=== PATIENT | female | born 2000 | race Caucasian/White ===

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

== ENCOUNTER 2025-06-22 06:53 | Inpatient (IN) ==
[2025-06-22] MEDS ORDERED: LIDOCAINE 1% LOCAL 20 ML VIAL INFIL PRN (07:31)
[2025-06-22] MEDS ORDERED: OXYTOCIN 30 UNITS/NSS 30 UNITS/500 ML BAG IV PRN ×3 (07:31→17:40)
--- NOTE | 2025-06-22 07:45 | History & Physical Report ---
Date of Service June 22, 2025 Assessment & Plan (1) : Plan: Admit to L&D, EFM/toco for labor. Labs. Plans for epidural at some point. History of Present Illness Chief Complaint: contractions, rupture of membranes Primary Care Provider: Justina Brown 25yo @ 38 07/10, came to L&D after clear fluid leakage at home at 5am. [place] a gush, continued to leak. Feeling contractions. + movement and Delivery Plans Rubella equivocal *Recommend PPX MMR Hepatitis B Non Immune *Recommend Hepatitis B Vaccine Allergies Allergy/AdvReac Type Severity Reaction Status Date / Time No Known Allergies Allergy Verified 06/20/25 15:05 Home Medications Medication Instructions Recorded Confirmed Type vitamins no.144-folic 2 tab PO DAILY 11/28/24 06/20/25 History acid 400 mcg chewable tablet () ferrous sulfate 27 mg iron tablet 27 mg PO DAILY 04/22/25 06/20/25 History sertraline 25 mg tablet (Zoloft) 25 mg PO DAILY #30 tabs 05/13/25 06/20/25 Rx Patient History Medical History (Updated 06/22/25 @ 07:47 by Fe Burr DO) Varicella vaccination Anemia COVID-19 Medical marijuana use states has not used in over a year Bipolar depression Missed Dental trauma Psychological disorder Miscarriage Medically induced miscarriage History of COVID-19 1 MON AGO, [facility] [place] - SORE THROAT , SORE BODY NO CURRENT SYMPTOMS Ovarian cyst Panic disorder Bipolar disorder Depression Anxiety History of anemia Surgical History S/P laparoscopic cholecystectomy (~2018) Domingo Lisa H/O dilation and curettage (~2016) x2 H/O wisdom tooth extraction Family History Denies family history of Ovarian cancer Breast cancer Colorectal cancer Social History (Updated 04/04/25 @ 23:39 by Mercedes Nguyen RN) Smoking Status: Former smoker Tobacco Type: E-cigarettes / Vaping Do You Dip or Chew Tobacco: No; Hx Alcohol Use: No Hx Substance Use: No Preferred Language: [place] Communication Ability: Effective Cosmetology Instructor Required: No Beliefs That Will Affect Care: None marital status: Single marital status details: judit Cagle (24) [phone] Current Living Situation: Significant Other Current Living Situation Comment: lives with judit, 2 dogs, ducks current occupational status: employed 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 How many Children do You have: 0 Feels Safe at Home: Yes Diet: regular during the past year weight has: decreased > 10 lbs Assistive Devices: Glasses Review of Systems All systems reviewed & are unremarkable except as noted in HPI & below Physical Exam Physical Exam: FHT Cat 1 [place] not able to trace ctx SVE 4/100/-1 Grossly ruptured Constitutional: WD/WN, vitals as above Respiratory: normal respiratory effort, lungs clear to auscultation no respiratory distress Cardiovascular: Rate/Rhythm: regular rate and regular rhythm Gastrointestinal (Abdomen): Inspection/Auscultation: abdomen normal to inspection Percussion/Palpation: abdomen soft; abdomen nontender Gravid. No s/s chorio or abruption. Skin: no rashes, warm and dry Psychiatric: A+Ox3, euthymic affect Results & Data Vital Signs (Past 12 Hours) Vital Signs Pulse BP 06/22/25 07:09 122 H 137/79 Coding Level of Care Code None Diagnoses Z34.90
[2025-06-22 07:56] LABS: Hematocrit (blood only) 34.6 % (37.0-47.0); Hemoglobin 11.3 g/dL (12.0-16.0); Mean Corpuscular Hemoglobin 26.7 pg (25.0-34.0); Mean Corpuscular Volume 81.6 fL (80.0-100.0); Platelet Count 507 K/uL (130-400); RDW Standard Deviation 43.8 fL (36.4-46.3); Red Blood Count 4.24 M/uL (4.20-5.40); White Blood Count 16.91 K/ul (4.8-10.8)
[2025-06-22] MEDS: LACTATED RINGER'S 1,000 ML IV PRN (08:12)
--- NOTE | 2025-06-22 08:38 | Anesthesiology Consultation ---
Date of Service June 22, 2025 Assessment & Plan (1) Encounter for pre-operative examination: Chart Review Chart Review: Acceptable Risk for Labor Epidural History Height/Weight Height: 5 ft 5 in Weight: 122.47 kg Allergies Allergy/AdvReac Type Severity Reaction Status Date / Time No Known Allergies Allergy Verified 06/22/25 07:58 Medications Home Medications Medication Instructions Recorded Confirmed Last Taken vitamins no.144-folic 2 tab PO DAILY 11/28/24 06/22/25 06/21/25 09:00 acid 400 mcg chewable tablet () ferrous sulfate 27 mg iron tablet 27 mg PO DAILY 04/22/25 06/22/25 06/21/25 09:00 sertraline 25 mg tablet (Zoloft) 25 mg PO DAILY #30 tabs 05/13/25 06/22/25 06/20/25 21:00 Active Medications Generic Name Dose Route Start Last Admin Trade Name Freq PRN Reason Stop Dose Admin Lactated Ringer's 1,000 mls @ 125 mls/hr 06/22/25 07:31 06/22/25 08:12 Lr IV 06/24/25 07:30 999 mls/hr .Q8H PRN Administration L&D Protocol Protocol Past Medical History Medical History Varicella vaccination Anemia COVID-19 Medical marijuana use states has not used in over a year Bipolar depression Missed Dental trauma Psychological disorder Miscarriage Medically induced miscarriage History of COVID-19 1 MON AGO, [facility] [place] - SORE THROAT , SORE BODY NO CURRENT SYMPTOMS Ovarian cyst Panic disorder Bipolar disorder Depression Anxiety History of anemia Past Family History Family History Denies family history of Ovarian cancer Breast cancer Colorectal cancer Past Surgical History Surgical History S/P laparoscopic cholecystectomy (~2018) [place] Lisa H/O dilation and curettage (~2016) x2 H/O wisdom tooth extraction Social History Smoking Status: Never smoker Do You Dip or Chew Tobacco: No Hx Alcohol Use: No Hx Substance Use: No substance use type: other Substance Use Type Other:: Medical marijuana card Physical Exam Vital Signs Last Vital Signs Temp 36.5 C 06/22/25 07:10 Pulse 120 H 06/22/25 08:33 Resp 20 06/22/25 07:10 BP 137/79 06/22/25 07:10 Pulse Ox 98 06/22/25 08:33 Testing Laboratory Results 06/22/25 07:43
[2025-06-22] MEDS ORDERED: NALOXONE HCL 1 MG in SODIUM CHLORIDE 0.9% 1,000 ML IV PRN (09:08)
[2025-06-22] MEDS ORDERED: ONDANSETRON INJ 2 MG/ML 2 ML VIAL IV PRN (09:08)
[2025-06-22] MEDS ORDERED: BUPIVACAINE 0.25% PF 30 ML VIAL EPI PRN (09:08)
[2025-06-22] MEDS ORDERED: NALOXONE HCL 0.4 MG/1 ML VIAL/CARP IV PRN (09:08)
[2025-06-22] MEDS ORDERED: LIDOCAINE 2% MPF LOCAL 5 ML VIAL EPI PRN (09:08)
[2025-06-22] MEDS ORDERED: ROPIVACAINE 0.5% PF 5 MG/ML 20 ML VIAL EPI PRN (09:08)
[2025-06-22] MEDS ORDERED: SODIUM CHLORIDE 0.9% PF INJ 10 ML VIAL EPI PRN (09:08)
[2025-06-22] MEDS: LIDOCAINE 2%/EPINEPHRINE 1:200,000 20 ML PF ONE (09:09)
[2025-06-22] MEDS: BUPIVACAINE 0.25% PF 30 ML VIAL ONE (09:10)
[2025-06-22] MEDS: fentANYL 2 MCG/ML BUPIVacaine 0.125%-NSS 100ML BAG ONE (09:12)
[2025-06-22] MEDS: SODIUM CHLORIDE 0.9% PF INJ 10 ML VIAL EPI STA (09:47)
[2025-06-22] MEDS: LIDOCAINE 2%/EPINEPHRINE 1:200,000 20 ML PF EPI STA (09:47)
[2025-06-22] MEDS: BUPIVACAINE 0.25% PF 30 ML VIAL EPI STA (09:47)
--- NOTE | 2025-06-22 09:55 | Labor Progress Brief Note ---
Date of Service June 22, 2025 Subjective pt comfortable with epidural Assessment & Plan (1) Normal labor: Plan contraction pattern irregular and will add pit. fhts categ 1. aware i am assuming care. Admission and Anticipated Discharge Date Admission Date: June 22, 2025 Physical Exam Constitutional: WD/WN, vitals as above Genitourinary: Manual OB Exam: + cervical dilation 4 cm, + cervical effacement 100%, + station -2 and + amniotic fluid (forebag, arom) clear OB Exam Monitor Tracing: + external FHT monitor used, + external uterine monitor used (q3-4), + category I and + normal FHT variability Results & Data Vital Signs (Past 12 Hours) Vital Signs Temp Pulse Resp BP Pulse Ox 06/22/25 09:48 102 H 98 06/22/25 09:43 101 H 98 06/22/25 09:42 106 H 133/76 06/22/25 09:38 101 H 97 06/22/25 09:33 107 H 97 06/22/25 09:32 110 H 138/82 06/22/25 09:30 101 H 136/77 06/22/25 09:28 98 06/22/25 09:28 108 H 06/22/25 09:28 120 H 133/82 06/22/25 09:26 103 H 128/76 06/22/25 09:24 110 H 118/76 06/22/25 09:23 108 H 98 06/22/25 09:22 109 H 140/80 06/22/25 09:20 104 H 136/69 06/22/25 09:18 106 H 132/66 98 06/22/25 09:16 101 H 137/65 06/22/25 09:15 18 06/22/25 09:15 18 06/22/25 09:14 106 H 139/63 06/22/25 09:13 110 H 97 06/22/25 09:12 115 H 137/63 06/22/25 09:10 113 H 139/70 06/22/25 09:08 113 H 139/69 97 06/22/25 09:06 101 H 158/69 H 06/22/25 09:03 97 06/22/25 09:03 99 H 06/22/25 09:03 107 H 140/74 06/22/25 08:58 118 H 97 06/22/25 08:53 116 H 98 06/22/25 08:48 110 H 98 06/22/25 08:43 113 H 98 06/22/25 08:40 116 H 143/89 H 06/22/25 08:38 107 H 97 06/22/25 08:33 120 H 98 06/22/25 08:28 117 H 98 06/22/25 07:15 20 06/22/25 07:15 97.7 F 20 06/22/25 07:10 97.7 F 122 H 20 137/79 06/22/25 07:09 122 H 137/79 Coding Level of Care Code None Diagnoses Normal labor O80; Z37.9
[2025-06-22] MEDS: OXYTOCIN 30 UNITS/NSS 30 UNITS/500 ML BAG IV PRN (10:09)
[2025-06-22] MEDS: SODIUM CHLORIDE 0.9% PF INJ 10 ML VIAL ONE (10:11)
[2025-06-22] MEDS ORDERED: ROPIVACAINE 0.5% 5 MG/ML 30 ML VIAL ONE (12:32)
[2025-06-22] MEDS ORDERED: LIDOCAINE 2%/EPINEPHRINE 1:200,000 20 ML PF ONE (12:32)
--- NOTE | 2025-06-22 12:39 | Anesthesia Procedure Note ---
Date of Service June 22, 2025 Anesthesia Epidural Re-Dose Vital Signs Temp Pulse Resp BP Pulse Ox 36.8 C 113 H 22 137/83 97 06/22/25 11:30 06/22/25 12:33 06/22/25 12:30 06/22/25 12:31 06/22/25 12:33 Notes Pain Intensity: 8 Dilatation (cm): 9.0 Effacement (%): 100 Called by nursing to evaluate epidural as the patient is having increased pain. The epidural was re-dosed with the following medications (all medications via epidural route) after negative aspiration of the epidural catheter for CSF/HEME 1.2% lidocaine and 0.2% ropivacaine 7ml After Epidural Re-Dose Mental Status: alert / awake / arousable Pain: improving with treatment Airway Patency, RR, SpO2: stable & adequate BP & HR: stable & adequate
--- NOTE | 2025-06-22 13:11 | Labor Progress Brief Note ---
Date of Service June 22, 2025 Subjective more pain with ctx Assessment & Plan (1) Normal labor: Plan: good progress in labor. expect 2nd stage soon. fhts categ 1. will plan to see if anesth can help with pain mgmt. Admission and Anticipated Discharge Date Admission Date: June 22, 2025 Physical Exam Constitutional: WD/WN, vitals as above Genitourinary: Manual OB Exam: + cervical dilation 9 cm, + cervical effacement 100% and + station 0 OB Exam Monitor Tracing: + external FHT monitor used, + external uterine monitor used (q2, pit at 3), + category I and + normal FHT va riability Results & Data Vital Signs (Past 12 Hours) Vital Signs Temp Pulse Resp BP Pulse Ox 06/22/25 13:08 106 H 98 06/22/25 13:03 111 H 98 06/22/25 13:01 121 H 145/66 H 06/22/25 12:58 113 H 98 06/22/25 12:53 130 H 97 06/22/25 12:48 116 H 97 06/22/25 12:43 118 H 96 06/22/25 12:40 107 H 140/84 06/22/25 12:38 107 H 97 06/22/25 12:33 113 H 97 06/22/25 12:31 114 H 137/83 06/22/25 12:30 22 06/22/25 12:30 22 06/22/25 12:28 98 06/22/25 12:28 101 H 06/22/25 12:28 97 H 94 06/22/25 12:23 109 H 98 06/22/25 12:18 107 H 97 06/22/25 12:17 104 H 135/78 06/22/25 12:13 111 H 98 06/22/25 12:08 108 H 97 06/22/25 12:03 104 H 98 06/22/25 12:02 103 H 142/87 H 06/22/25 12:00 20 06/22/25 12:00 20 06/22/25 11:58 104 H 97 06/22/25 11:53 105 H 97 06/22/25 11:48 108 H 97 06/22/25 11:45 102 H 134/75 06/22/25 11:43 102 H 97 06/22/25 11:38 102 H 98 06/22/25 11:33 113 H 98 06/22/25 11:31 104 H 139/98 06/22/25 11:30 22 06/22/25 11:30 98.2 F 22 06/22/25 11:28 109 H 97 06/22/25 11:23 108 H 97 06/22/25 11:18 112 H 97 06/22/25 11:16 105 H 137/94 06/22/25 11:13 104 H 97 06/22/25 11:08 105 H 96 06/22/25 11:03 94 H 98 06/22/25 11:00 100 H 18 136/58 L 06/22/25 10:58 98 H 98 06/22/25 10:53 97 H 97 06/22/25 10:48 104 H 98 06/22/25 10:43 98 H 98 06/22/25 10:41 93 H 105/58 L 06/22/25 10:38 103 H 98 06/22/25 10:35 96 H 140/65 06/22/25 10:33 94 H 98 06/22/25 10:32 95 H 139/73 06/22/25 10:30 16 06/22/25 10:30 16 06/22/25 10:28 97 H 98 06/22/25 10:23 99 H 97 06/22/25 10:21 105 H 160/72 H 06/22/25 10:18 110 H 98 06/22/25 10:13 103 H 98 06/22/25 10:08 112 H 98 06/22/25 10:03 101 H 98 06/22/25 10:00 18 06/22/25 09:58 100 H 97 06/22/25 09:53 112 H 98 06/22/25 09:48 102 H 98 06/22/25 09:43 101 H 98 06/22/25 09:42 106 H 133/76 06/22/25 09:38 101 H 97 06/22/25 09:33 107 H 97 06/22/25 09:32 110 H 138/82 06/22/25 09:30 98.2 F 101 H 18 136/77 06/22/25 09:28 98 20 09:28 108 H 20 09:28 120 H 133/82 06/22/25 09:26 103 H 128/76 06/22/25 09:24 110 H 118/76 06/22/25 09:23 108 H 98 06/22/25 09:22 109 H 140/80 06/22/25 09:20 104 H 136/69 06/22/25 09:18 106 H 132/66 98 06/22/25 09:16 101 H 137/65 06/22/25 09:15 18 06/22/25 09:15 18 06/22/25 09:14 106 H 139/63 06/22/25 09:13 110 H 97 06/22/25 09:12 115 H 137/63 06/22/25 09:10 113 H 139/70 06/22/25 09:08 113 H 139/69 97 06/22/25 09:06 101 H 158/69 H 06/22/25 09:03 97 06/22/25 09:03 99 H 06/22/25 09:03 107 H 140/74 06/22/25 08:58 118 H 97 06/22/25 08:53 116 H 98 06/22/25 08:48 110 H 98 06/22/25 08:43 113 H 98 06/22/25 08:40 116 H 143/89 H 06/22/25 08:38 107 H 97 06/22/25 08:33 120 H 98 06/22/25 08:28 117 H 98 06/22/25 07:15 20 06/22/25 07:15 97.7 F 20 06/22/25 07:10 97.7 F 122 H 20 137/79 06/22/25 07:09 122 H 137/79 Coding Level of Care Code None Diagnoses Normal labor O80; Z37.9
--- NOTE | 2025-06-22 14:03 | Labor Progress Brief Note ---
Date of Service June 22, 2025 Subjective not feeling urge to push, can barely feel her legs. Assessment & Plan (1) Normal labor: Plan rec drain bladder, position change and see if baby can rotate as i suspect OP right now. re-attempt pushing in about 30-60min. fhts categ 1. pt agreeable. Admission and Anticipated Discharge Date Admission Date: June 22, 2025 Physical Exam Constitutional: WD/WN, vitals as above Genitourinary: Manual OB Exam: + cervical dilation 10 cm, + cervical effacement 100% and + station + 1 OB Exam Monitor Tracing: + external FHT monitor used, + external uterine monitor used (q2-3 pit at 3), + category I and + normal FHT variability practice push x 1, some good effort , baby feels OP. voided. Results & Data Vital Signs (Past 12 Hours) Vital Signs Temp Pulse Resp BP Pulse Ox 06/22/25 13:58 159 H 92 06/22/25 13:53 114 H 97 06/22/25 13:48 131 H 97 06/22/25 13:47 121 H 107/58 L 06/22/25 13:43 128 H 99 06/22/25 13:38 113 H 99 06/22/25 13:33 122 H 98 06/22/25 13:31 106 H 144/74 H 06/22/25 13:30 16 06/22/25 13:30 98.1 F 16 06/22/25 13:28 125 H 98 06/22/25 13:23 121 H 98 06/22/25 13:18 114 H 99 06/22/25 13:17 121 H 132/66 06/22/25 13:13 129 H 98 06/22/25 13:08 106 H 98 06/22/25 13:03 111 H 98 06/22/25 13:01 121 H 145/66 H 06/22/25 13:00 16 06/22/25 13:00 16 06/22/25 12:58 113 H 98 06/22/25 12:53 130 H 97 06/22/25 12:48 116 H 97 06/22/25 12:43 118 H 96 06/22/25 12:40 107 H 140/84 06/22/25 12:38 107 H 97 06/22/25 12:33 113 H 97 06/22/25 12:31 114 H 137/83 06/22/25 12:30 22 06/22/25 12:30 22 06/22/25 12:28 98 06/22/25 12:28 101 H 06/22/25 12:28 97 H 94 06/22/25 12:23 109 H 98 06/22/25 12:18 107 H 97 06/22/25 12:17 104 H 135/78 06/22/25 12:13 111 H 98 06/22/25 12:08 108 H 97 06/22/25 12:03 104 H 98 06/22/25 12:02 103 H 142/87 H 06/22/25 12:00 20 06/22/25 12:00 20 06/22/25 11:58 104 H 97 06/22/25 11:53 105 H 97 06/22/25 11:48 108 H 97 06/22/25 11:45 102 H 134/75 06/22/25 11:43 102 H 97 06/22/25 11:38 102 H 98 06/22/25 11:33 113 H 98 06/22/25 11:31 104 H 139/98 06/22/25 11:30 22 06/22/25 11:30 98.2 F 22 06/22/25 11:28 109 H 97 06/22/25 11:23 108 H 97 06/22/25 11:18 112 H 97 06/22/25 11:16 105 H 137/94 06/22/25 11:13 104 H 97 06/22/25 11:08 105 H 96 06/22/25 11:03 94 H 98 06/22/25 11:00 100 H 18 136/58 L 06/22/25 10:58 98 H 98 06/22/25 10:53 97 H 97 06/22/25 10:48 104 H 98 06/22/25 10:43 98 H 98 06/22/25 10:41 93 H 105/58 L 06/22/25 10:38 103 H 98 06/22/25 10:35 96 H 140/65 06/22/25 10:33 94 H 98 06/22/25 10:32 95 H 139/73 06/22/25 10:30 16 06/22/25 10:30 16 06/22/25 10:28 97 H 98 06/22/25 10:23 99 H 97 06/22/25 10:21 105 H 160/72 H 06/22/25 10:18 110 H 98 06/22/25 10:13 103 H 98 06/22/25 10:08 112 H 98 06/22/25 10:03 101 H 98 06/22/25 10:00 18 06/22/25 09:58 100 H 97 06/22/25 09:53 112 H 98 06/22/25 09:48 102 H 98 06/22/25 09:43 101 H 98 06/22/25 09:42 106 H 133/76 06/22/25 09:38 101 H 97 06/22/25 09:33 107 H 97 06/22/25 09:32 110 H 138/82 06/22/25 09:30 98.2 F 101 H 18 136/77 06/22/25 09:28 98 06/22/25 09:28 108 H 06/22/25 09:28 120 H 133/82 06/22/25 09:26 103 H 128/76 06/22/25 09:24 110 H 118/76 06/22/25 09:23 108 H 98 06/22/25 09:22 109 H 140/80 06/22/25 09:20 104 H 136/69 06/22/25 09:18 106 H 132/66 98 06/22/25 09:16 101 H 137/65 06/22/25 09:15 18 06/22/25 09:15 18 06/22/25 09:14 106 H 139/63 06/22/25 09:13 110 H 97 06/22/25 09:12 115 H 137/63 06/22/25 09:10 113 H 139/70 06/22/25 09:08 113 H 139/69 97 06/22/25 09:06 101 H 158/69 H 06/22/25 09:03 97 06/22/25 09:03 99 H 06/22/25 09:03 107 H 140/74 06/22/25 08:58 118 H 97 06/22/25 08:53 116 H 98 06/22/25 08:48 110 H 98 06/22/25 08:43 113 H 98 06/22/25 08:40 116 H 143/89 H 06/22/25 08:38 107 H 97 06/22/25 08:33 120 H 98 06/22/25 08:28 117 H 98 06/22/25 07:15 20 06/22/25 07:15 97.7 F 20 06/22/25 07:10 97.7 F 122 H 20 137/79 06/22/25 07:09 122 H 137/79 Coding Level of Care Code None Diagnoses Normal labor O80; Z37.9
[2025-06-22] MEDS: fentANYL 2 MCG/ML BUPIVacaine 0.125%-NSS 100ML BAG EPI PRN (16:03)
[2025-06-22] MEDS: miSOPROStol 200 MCG TAB PR ONE (17:25)
[2025-06-22] MEDS: METHYLERGONOVINE MALEATE 0.2 MG/ML AMP IM ONE (17:28)
[2025-06-22] MEDS: TRANEXAMIC ACID / 0.7% NACL 1,000 MG/100 ML BAG IV STA (17:28)
--- NOTE | 2025-06-22 17:34 | Delivery Summary ---
Vaginal Delivery Summary Date of Service June 22, 2025 Vaginal Delivery Summary and 2nd Degree LAC The patient dilated to complete and pushed to deliver a viable male infant Apgars 8 and 9 via over 2nd degree perineal laceration. Mouth and nose bulb suctioned at perineum. Shoulders and body delivered with ease. Infant was vigorous and crying at . Cord clamped at 30 seconds of life and to maternal abdomen where the cord was then doubly clamped and cut. Placenta delivered spontaneously and intact, three-vessel cord. Hemostasis not achieved with dilute pitocin and uterine massage and drainage of the bladder for approximately <100 cc under sterile conditions. Therefore im methergine, rectal cytotec 1000mg and iv txa given. Bleeding slowing, uterine exam without retained POCs. Clots during this process continued to collect at KURT. Cervix and sulci i ntact. QBL 567 cc. Laceration repaired in layers with 3-0 vicryl in usual fashion. Mother and baby stable in recovery. [facility] [place] Vaginal Delivery Charge Delivery Type Details: and 2nd Degree LAC
[2025-06-22] MEDS ORDERED: HYDROCORTISONE ACETATE 25 MG SUPP PR PRN (17:40)
[2025-06-22] MEDS ORDERED: OXYTOCIN 20 UNITS in LACTATED RINGER'S 1,000 ML IV SCH (17:45)
[2025-06-22] MEDS: TRANEXAMIC ACID / 0.7% NACL 1000MG/100ML BAG IV ONE (17:51)
[2025-06-22] MEDS: METHYLERGONOVINE MALEATE 0.2 MG/ML AMP ONE (17:52)
[2025-06-22] MEDS: miSOPROStol 200 MCG TAB ONE (17:52)
[2025-06-22] MEDS: IBUPROFEN 600 MG TAB PO PRN (17:59)
[2025-06-22] MEDS: ACETAMINOPHEN 325 MG TAB PO PRN (18:00)
[2025-06-22] MEDS: DIPHTHER/TETAN/PERTUS Vaccine (Tdap, Adol/Adult) 0.5mL IM ONE (18:01)
--- NOTE | 2025-06-22 18:22 | Anesthesia Procedure Note ---
Date of Service June 22, 2025 Anesthesia Post Epidural Note Vital Signs Vital Signs: Temp Pulse Resp BP Pulse Ox 36.8 C 118 H 20 141/65 H 97 06/22/25 15:30 06/22/25 18:16 06/22/25 15:30 06/22/25 18:16 06/22/25 18:15 Notes Mental Status: alert / awake / arousable and participated in evaluation Nausea / Vomiting: adequately controlled Pain: adequately controlled Airway Patency, RR, SpO2: stable & adequate BP & HR: stable & adequate Hydration State: stable & adequate Neuraxial Anesthesia: was administered and sensory block is resolving Anesthetic Complications: no major complications apparent Epidural: Removed without complications and With tip intact
[2025-06-22] MEDS: OXYTOCIN 20 UNITS/LR 1,002 ML IV SCH (18:30)
[2025-06-22] MEDS ORDERED: SODIUM CHLORIDE 0.9% 100 ML IV PRN (20:26)
[2025-06-22] MEDS: SERTRALINE HCL 50 MG TABLET PO SCH (20:59)
[2025-06-22] MEDS: DOCUSATE SODIUM 100 MG CAP PO SCH (22:12)
[2025-06-22] MEDS: BENZOCAINE 20% SPRY 85 APPLN/85 GM CAN EXT PRN (22:42)
[2025-06-23 07:49] LABS: Hematocrit (blood only) 31.8 % (37.0-47.0); Hemoglobin 10.4 g/dL (12.0-16.0); Mean Corpuscular Hemoglobin 26.9 pg (25.0-34.0); Mean Corpuscular Volume 82.4 fL (80.0-100.0); Platelet Count 497 K/uL (130-400); RDW Standard Deviation 44.6 fL (36.4-46.3); Red Blood Count 3.86 M/uL (4.20-5.40); White Blood Count 24.41 K/ul (4.8-10.8)
[2025-06-23] MEDS: PRENATAL VITAMIN 1 TAB PO SCH (07:50)
--- NOTE | 2025-06-23 10:11 | Obstetrical Progress Note ---
Date of Service June 23, 2025 Assessment & Plan (1) care and examination: Plan stable doing well routine care. breast/bottle, rhpos, mmr rec and ordered. Subjective Ambulation: ambulating normally Voiding: no voiding problems Diet Tolerance:: regular diet Lochia:: Small Feeding Type:: breast feeding breast and bottle feeding, feels well. no concerns. Constitutional: + as per Subjective / HPI Physical Exam Constitutional WD/WN, vitals as above Respiratory normal respiratory effort, lungs clear to auscultation Cardiovascular Rate/Rhythm: regular rate and regular rhythm Gastrointestinal (Abdomen) Inspection/Auscultation: abdomen normal to inspection Percussion/Palpation: abdomen soft Fundus firm 2cm down Musculoskeletal nt calves tr edema Neurologic grossly normal Psychiatric A+Ox3, euthymic affect Results & Data Vital Signs (Past 12 Hours) Vital Signs Temp Pulse Resp BP O2 Del Method 06/23/25 07:45 97.7 F 109 H 14 128/87 Room Air 06/23/25 04:40 97.7 F 112 H 18 136/86 Room Air 06/23/25 00:30 97.9 F 116 H 18 120/77 Room Air
[2025-06-23] MEDS: MEASLES, MUMPS & RUBELLA VIRUS VACCINE (MMR) 0.5ML VIAL SQ ONE (13:32)
[2025-06-23 22:45] VITALS: TEMP 97.9
[2025-06-24 05:57] LABS: Hematocrit (blood only) 27.7 % (37.0-47.0); Hemoglobin 8.9 g/dL (12.0-16.0)
--- NOTE | 2025-06-24 06:27 | Obstetrical Progress Note ---
Date of Service June 24, 2025 Assessment & Plan (1) care and examination: Plan stable, dc home, f/u 6 wk pp check. rhpos, breast, mmr ordered. Subjective Ambulation: ambulating normally Voiding: no voiding problems Diet Tolerance:: regular diet Lochia:: Small Feeding Type:: breast feeding no concerns Constitutional: + as per Subjective / HPI Physical Exam Constitutional WD/WN, vitals as above Respiratory normal respiratory effort, lungs clear to auscultation Cardiovascular Rate/Rhythm: regular rate and regular rhythm Gastrointestinal (Abdomen) Inspection/Auscultation: abdomen normal to inspection Percussion/Palpation: abdomen soft fundus firm 2 cm below umbilicus Musculoskeletal nt calves no edema Neurologic grossly normal Psychiatric A+Ox3, euthymic affect Results & Data Vital Signs (Past 12 Hours) Vital Signs Temp Pulse Resp BP Pulse Ox O2 Del Method 06/23/25 22:45 97.9 F 109 H 17 118/80 96 Room Air 06/23/25 20:00 98.4 F 115 H 17 120/87 96 Room Air
--- NOTE | 2025-06-24 07:39 | Obstetrical Progress Note ---
Date of Service June 24, 2025 Assessment & Plan (1) care and examination: Plan 25 yo post- day 2 s/p . Fells well today. Vital signs stable Continue post- care Encourage ambulation and Pain controlled with ibuprofen Hgb stable Discharge home today, follow up with Dr. Page in 6 weeks. Admission and Anticipated Discharge Date Admission Date: June 22, 2025 Supervising Physician Co-Signing Physician Notes Resident Physician Supervision Note: I was present with Dr. Perez during the history and exam. I discussed the case with the resident and agree with the findings and plan as documented in the note. Any exceptions or clarifications are listed here: stable, doing well. ready for dc home. eating, voiding, ambulating. bottle feeding and breast pumping. did get mmr. rh pos. abd soft ff 2 down nt, ext nt calves. instructions reviewed. f/u 6 wk pp check. Documented By: Heather Page MD, FACOG Subjective 25 yo post- day 2 s/p . Ambulation: ambulating normally Voiding: no voiding problems Passing Gas:: Yes Diet Tolerance:: regular diet Lochia:: Small Feeding Type:: bottle feeding Current Pain Level:Slight pain. Resting comfortably this AM in NAD. Denies BACON, CP, SOB, N/V/D, LE pain/swelling. Review of Systems Review of Systems: As per HPI. Physical Exam Physical Exam: General: patient resting comfortably, NAD, non-toxic in appearance, AA&O x 4, answers questions appropriately. Skin: warm, dry, intact HEENT: NC/AT, anicteric sclera, conjunctiva without injection, moist mucus membranes. Heart: +S1/S2, regular, no m/r/g Lungs: equal air entry bilaterally, no rales/rhonchi/wheezes Abd: +BS, soft, NT/ND, uterine fundus firm at umbilicus, caesarean incision C/D/I. Ext: warm, no clubbing/cyanosis or edema, Susan's neg. Results & Data Vital Signs (Past 12 Hours) Vital Signs Temp Pulse Resp BP Pulse Ox O2 Del Method 06/23/25 22:45 36.6 C 109 H 17 118/80 96 Room Air 06/23/25 20:00 36.9 C 115 H 17 120/87 96 Room Air Resident Activity Tracking Resident Involvement: Resident Care Provided Care Provided: Adult Hospital Medicine
[2025-06-24 07:50] VITALS: BP 117/73; PULSE 96; RESP 18; O2SAT 98
== END 2025-06-24 10:55 | disposition home or self-care (01) | DRG 807 ==
LOC: OPB 06:53 → 4S1 06:58 → 4E2 20:22